=== PATIENT | male | born 2005 | race Caucasian/White ===

== ENCOUNTER 2023-01-08 20:23 | Emergency (ER) | payer BC, OTHER ==
[2023-01-08] MEDS ORDERED: Famotidine/PF 20 mg/2ml Vial ONE (20:39)
[2023-01-08] MEDS ORDERED: methylPREDNISolone Sod Succ/PF 125 MG/2 ML VIAL ONE (20:39)
== END 2023-01-08 23:29 | disposition home or self-care (01) ==
LOC: CSHERS 20:23
DX: T78.40XA Allergy, unspecified, initial encounter (principal)
CPT/HCPCS: 96361; 96374; 96375; J2930; S0028